=== PATIENT | male | born 1955 | race Hispanic/Latino ===

== ENCOUNTER 2016-11-25 18:17 | Emergency (ER) | payer SELFPAY ==
[2016-11-25 19:08] VITALS: O2SAT 95
--- NOTE | 2016-11-25 19:19 | ED.PDOC ---
History of Present Illness - General Chief Complaint: Problem Stated Complaint: Urinary retention Time Seen by Provider: 11/25/16 19:04 Source: patient Exam Limitations: no limitations - History of Present Illness Initial Comments: Bacilio Miles 61 y/o male stated that he had frequency with pain on urination which started this am and got worst this pm Timing/Duration: this morning Quality: burning, intermittent Onset Location: suprapubic Radiation: none Activites at Onset: none Prior abdominal problems: similar symptoms - eight years ago Improving Factors: nothing Worsening Factors: nothing Associated Symptoms: urinary frequency Allergies/Adverse Reactions: Allergies NO KNOWN ALLERGY Allergy (Verified 11/25/16 18:51) Home Medications: Ambulatory Orders Ciprofloxacin HCl [Cipro] 250 mg PO BID #14 tab 11/25/16 Diabetic Pill 1 each PO BID 11/25/16 Tamsulosin HCl [Flomax] 0.4 mg PO BEDTIME #30 cap 11/25/16 Review of Systems - Review of Systems Constitutional: States: no symptoms reported EENTM: States: no symptoms reported Respiratory: States: no symptoms reported Cardiology: States: no symptoms reported Gastrointestinal/Abdominal: States: no symptoms reported Genitourinary: States: see HPI Past Medical History (General) - Patient Medical History Hx Stroke: No Hx Congestive Heart Failure: No Hx Diabetes: Yes Hx MRSA: No Surgical History: appendectomy - Vaccination History Hx Tetanus, Diphtheria Vaccination: No Hx Influenza Vaccination: Yes - 2016 Hx Pneumococcal Vaccination: Yes - Social History Hx Tobacco Use: No Family Medical History - Family History Father Family History: No Known Living Status: Hx Family Hypertension: Yes - mom Physical Exam - Physical Exam General Appearance: Alert, Comfortable, No apparent distress Eyes, Ears, Nose, Throat Exam: PERRL/EOMI, normal ENT inspection, pharynx normal Neck: non-tender, full range of motion, supple Cardiovascular/Respiratory: regular rate, rhythm, normal peripheral pulses Gastrointestinal/Abdominal: normal bowel sounds, non tender, soft, no organomegaly Male Genital Exam: normal genitalia, normal prostate, no hernia Back Exam: no CVA tenderness Extremity: non-tender, no pedal edema, no calf tenderness Skin Exam: normal color, warm/dry Departure - Departure Clinical Impression: Frequency-urgency syndrome Hematuria Qualifiers: Hematuria type: unspecified type Qualified Code(s): R31.9 - Hematuria, unspecified Time of Disposition: 19:28 Disposition: Discharge to Home or Self Care Condition: Good Departure Forms: ED Discharge - Pt. Copy, Patient Portal Self Enrollment Instructions: Blood in Urine, DI for Hematuria Prescriptions: Ciprofloxacin HCl [Cipro] 250 mg PO BID #14 tab Tamsulosin HCl [Flomax] 0.4 mg PO BEDTIME #30 cap Home Medications: Ambulatory Orders Ciprofloxacin HCl [Cipro] 250 mg PO BID #14 tab 11/25/16 Diabetic Pill 1 each PO BID 11/25/16 Tamsulosin HCl [Flomax] 0.4 mg PO BEDTIME #30 cap 11/25/16 Additional Instructions: NEED TO FOLLOW UP WITH PRIMARY MD FOR REFERRAL TO UROLOGIST
[2016-11-25] MEDS ORDERED: levoFLOXacin 500 MG TAB PO ONE (19:28)
[2016-11-25 19:47] VITALS: BP 151/76; TEMP 99
== END 2016-11-25 19:47 | disposition home or self-care (01) ==
LOC: ER 18:17
DX: R35.0 Frequency of micturition (principal); R31.9 Hematuria, unspecified; E11.9 Type 2 diabetes mellitus without complications